=== PATIENT | male | born 1985 | race Caucasian/White ===

== ENCOUNTER 2017-03-13 11:51 | Emergency (ER) | payer SELFPAY ==
[~2017-03-13] VITALS: Ht 177.8 cm; Wt 63.6 kg
[~2017-03-13 11:51] MED LIST: AMOXICILLIN500 MG PO; ASPIR-MOX 325325 M1 PO; NAPROXEN500 MG PO; PENICILLIN; THROAT SPRAY177 ML MM; ULTRAM50 MG PO
[2017-03-13 12:36] LABS: HEMATOCRIT 42.5 % (38.0-50.0); HEMOGLOBIN 14.7 G/DL (12.5-16.6); MCH 29.3 PG (29.0-34.0); MCHC 34.6 G/DL (30.0-36.0); MCV 84.7 FL (86-99); PLATELET COUNT 192 K/uL (156-360); RBC DIS.WIDTH-CV 13.2 % (11.8-14.6); RBC DIS.WIDTH-SD 41.4 % (39-53); RED BLOOD COUNT 5.02 M/uL (4.00-5.50); WHITE BLOOD COUNT 7.6 K/uL (4.1-10.2)
[2017-03-13 12:47] LABS: ALBUMIN 4.5 g/dL (3.2-4.8); CHLORIDE 99 mEq/L (99-109); SODIUM 139 mEq/L (136-147)
[2017-03-13 12:50] LABS: GLUCOSE 107 mg/dL (70-99); TOTAL PROTEIN 8.7 g/dL (6.4-8.3)
[2017-03-13 12:52] LABS: TOTAL BILIRUBIN 0.4 mg/dL (0.0-1.0)
[2017-03-13 12:53] LABS: ALKALINE PHOSPHATASE 65 IU/L (3-129); CREATININE 0.8 mg/dL (0.6-1.3); GFR ESTIMATE (CALCULATED) > 59 mL/min/ (58.99-99999)
[2017-03-13 12:54] LABS: UREA NITROGEN (BUN) 6 mg/dL (9-23)
[2017-03-13 12:55] LABS: AST (GOT) 24 IU/L (2-34)
[2017-03-13 12:56] LABS: ALT (GPT) 22 IU/L (3-49)
[2017-03-13 13:11] LABS: LIPASE 25 U/L (1.0-51.0)
[2017-03-13 14:40] LABS: APPEARANCE SL.HAZY ((CLEAR)); BILIRUBIN NEGATIVE; BLOOD NEGATIVE; COLOR YELLOW ((YELLOW)); GLUCOSE (STRIP) NEGATIVE; KETONES 80; LEUKOCYTES NEGATIVE; NITRITE NEGATIVE; PROTEIN (STRIP) 30; SPECIFIC GRAVITY 1.016 (1.000-1.030)
[2017-03-13 14:45] LABS: BACTERIA RARE /HPF; EPITHELIAL CELLS RARE /HPF; MUCUS 2+ /LPF; RED BLOOD CELLS 0-5 /HPF (0-5); UCUL ADDED? NO; WHITE BLOOD CELLS 0-5 /HPF (0-5)
[2017-03-13] MEDS ORDERED: ZOFRAN ODT4 MG PO (14:57)
[2017-03-13] MEDS ORDERED: NAPROSYN500 MG PO (14:57)
[2017-03-13 15:05] VITALS: BP 112/78
== END 2017-03-13 15:05 | disposition home or self-care (01) ==
LOC: EME 11:51
DX: R11.2 Nausea with vomiting, unspecified (principal); F12.90 Cannabis use, unspecified, uncomplicated; F17.200 Nicotine dependence, unspecified, uncomplicated
CPT/HCPCS: 80053; 81003; 83690; 85027; 99281; 99284; J1885; J2405; J7030

== ENCOUNTER 2017-07-03 19:01 | Emergency (ER) | payer SELFPAY ==
[~2017-07-03] VITALS: Ht 175.3 cm; Wt 61.4 kg
[~2017-07-03 19:01] MED LIST changes: +NAPROSYN500 MG PO; +ZOFRAN ODT4 MG PO
[2017-07-03 19:24] VITALS: BP 163/83
== END 2017-07-03 19:26 | disposition left against medical advice (07) ==
LOC: EME → EDBD 19:01 → EME 19:01
DX: F11.10 Opioid abuse, uncomplicated (principal); F39 Unspecified mood [affective] disorder
CPT/HCPCS: 99281; 99283